=== PATIENT | female | born 1985 | race Caucasian/White ===

== ENCOUNTER 2024-04-24 22:11 | Emergency (ER) | payer MEDICARE, MEDICAID ==
[~2024-04-24] VITALS: Ht 152.4 cm; Wt 55.3 kg
[2024-04-25] MEDS ORDERED: ACE3T PO (01:04)
[2024-04-25] MEDS ORDERED: IBUP-1455 PO (01:04)
[2024-04-25] MEDS ORDERED: AUG875T PO (01:04)
[2024-04-25 02:00] VITALS: BP 115/68; PULSE 63; RESP 16; O2SAT 99
[2024-04-25] MEDS: HYDROcodone-ACET 10/325MG TAB PO ONE (02:15)
[2024-04-25] MEDS: AMOXICILLIN/CLAVUL 875 MG TAB PO ONE (02:15)
[2024-04-25] MEDS: KETOROLAC TROMETH 60MG/2ML VIAL IM ONE (02:16)
[2024-04-25] MEDS ORDERED: PRED20TA2 PO (14:08)
== END 2024-04-25 02:22 | disposition home or self-care (01) ==
LOC: ER 22:11
DX: K04.7 Periapical abscess without sinus (principal)
CPT/HCPCS: 96372; 99283; J1885

== ENCOUNTER 2024-04-25 12:27 | Emergency (ER) | payer MEDICARE, MEDICAID ==
[~2024-04-25] VITALS: Ht 152.4 cm; Wt 52.8 kg
[~2024-04-25 12:27] MED LIST: ACE3T PO; AUG875T PO; IBUP-1455 PO
[2024-04-25 13:19] VITALS: BP 130/72; PULSE 82; RESP 18; TEMP 98.9; O2SAT 99
[2024-04-25] MEDS: methylPREDNISolone SOD SUCC 125 MG/2 ML VL IM ONE (14:07)
[2024-04-25] MEDS ORDERED: PRED20TA2 PO (14:08)
[2024-04-25] MEDS: KETOROLAC TROMETH 30 MG/ML 1ML VIAL IM ONE (14:08)
== END 2024-04-25 14:15 | disposition home or self-care (01) ==
LOC: ER 12:27
DX: S09.93XA Unspecified injury of face, initial encounter (principal); V89.2XXA Person injured in unspecified motor-vehicle accident, traffic, initial encounter; Y93.89 Activity, other specified; Y92.89 Other specified places as the place of occurrence of the external cause; Y99.8 Other external cause status
CPT/HCPCS: 96372; 99284; J1885; J2919

== ENCOUNTER 2024-05-19 19:20 | Emergency (ER) | payer MEDICARE, MEDICAID ==
[~2024-05-19] VITALS: Ht 152.4 cm; Wt 55.0 kg
[~2024-05-19 19:20] MED LIST changes: +PRED20TA2 PO
[2024-05-19 20:05] VITALS: RESP 16
[2024-05-19] MEDS: HYDROmorphone HCL 2 MG/ML VL/or syr IM ONE (20:35)
[2024-05-19 21:10] LABS: Basophils # (auto) 0 10 ^3/uL (0-0.2); Basophils % (auto) 0.1 % (0.0-2.0); Eosinophils # (auto) 0 10 ^3/uL (0-0.8); Eosinophils % (auto) 0.1 % (0.0-7.0); Hemoglobin 11.1 g/dL (12.2-16.2); Lymphocytes # (auto) 0.6 10 ^3/uL (0.4-5.4); Mean Corpuscular Hemoglobin 26.9 pg (28.0-32.0); Neutrophils # (auto) 3.8 10 ^3/uL (1.6-8.6)
[2024-05-19 21:11] LABS: Hematocrit 33.6 % (36.0-46.0); Lymphocytes % (auto) 12.9 % (10.0-50.0); Mean Corpuscular Hgb Conc. 32.9 g/dL (32.0-36.0); Mean Corpuscular Volume 81.6 fL (80.0-100.0); Monocytes # (auto) 0.2 10 ^3/uL (0-1.3); Monocytes % (auto) 3.6 % (0.0-12.0); Neutrophils % (auto) 83.3 % (37.0-80.0); Platelet Count (auto) 154 10^3/uL (140-450); Red Blood Cells 4.12 10^6/uL (4.0-5.20); Red Cell Distribution Width 15.4 % (11.8-14.3); White Blood Cell 4.5 10^3/uL (4.4-10.8)
[2024-05-19 21:24] LABS: Albumin 3.9 g/dL (3.2-4.8); Alkaline Phosphatase 52 U/L (46-116); Anion Gap 5 (5-15); Aspartate Aminotransferase < 8 U/L (13-40); BUN/Creatinine Ratio 9.8 (10.0-20.0); Blood Urea Nitrogen 5 mg/dL (9-23); Calcium 8.4 mg/dL (8.7-10.4); Carbon Dioxide 25 mmol/L (20-30); Chloride 108 mmol/L (98-107); Glucose 107 mg/dL (74-106); Lipase 26 U/L (12-53); Potassium 3.5 mmol/L (3.5-5.1); Sodium 138 mmol/L (136-145)
[2024-05-19 21:25] LABS: Bilirubin, Total 0.5 mg/dL (0.2-1.0); Total Protein 6.4 g/dL (5.7-8.2)
[2024-05-19 21:30] LABS: Alanine Aminotransferase 9 U/L (7-40)
[2024-05-19 22:00] VITALS: BP 115/77; PULSE 97; RESP 23; TEMP 100.1; O2SAT 96
[2024-05-19 22:43] LABS: Urine Bacteria FEW /hpf (None Seen); Urine Blood Negative /uL (Negative); Urine Clarity Turbid (Clear); Urine Color Yellow (Yellow); Urine Hyaline Cast FEW /lpf (0 - 2); Urine Mucus MANY (None Seen); Urine Protein, UAD TRACE (Negative); Urine Urobilinogen 2 mg/dL (Negative); Urine WBC 6 /hpf (0 - 5); Urine pH 5.5 (5.0-9.0)
[2024-05-19] MEDS: DexAMETHasone SOD PHOS 10MG/1ML VIAL INJ IM ONE (23:25)
[2024-05-20 00:05] LABS: COVID19 ANTIGEN SOFIA FIA NEGATIVE (NEGATIVE); Rapid Influenza A Negative (Negative); Rapid Influenza B Negative (Negative)
== END 2024-05-20 00:15 | disposition left against medical advice (07) ==
LOC: ER 19:20 → EDBD 19:20 → ER 05-20 00:15
DX: B34.9 Viral infection, unspecified (principal); Z79.899 Other long term (current) drug therapy; Z20.822 Contact with and (suspected) exposure to COVID-19
CPT/HCPCS: 36415; 80053; 81001; 81025; 83605; 83690; 85025; 87426; 87804; 93005; 96372; 99285; J1100; J1170